=== PATIENT | male | born 1980 | race Caucasian/White ===

== ENCOUNTER 2019-03-11 19:23 | Emergency (ER) | payer SELFPAY ==
[2019-03-11 19:43] VITALS: BP 142/97
[2019-03-11] MEDS ORDERED: Tetan/Diph/Pertus SYR(Tdap)* 0.5 ML SYR(BOOSTRIX) use SYR IM ONE (19:47)
--- NOTE | 2019-03-11 20:25 | ED ---
Head Injury - HPI Summary HPI Summary: 38 yr old male with the complaint of hit his head. 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 No LOC. He has mild headache. No NV. NO focal deficits. He has a superficial laceration to the mid scalp but within the hair. Not crossing the hairline or onto the scalp. - History Of Current Complaint Chief Complaint: UCLaceration Stated Complaint: HEAD LACERATION Time Seen by Provider: 03/11/19 20:07 Pain Intensity: 7 - Allergies/Home Medications Allergies/Adverse Reactions: Allergies Allergy/AdvReac Type Severity Reaction Status Date / Time No Known Allergies Allergy Verified 03/11/19 19:43 Home Medications: Home Medications NK [No Home Medications Reported] 03/11/19 [History Confirmed 03/11/19] PMH/Surg Hx/FS Hx/Imm Hx Endocrine/Hematology History: Denies: Hx Anticoagulant Therapy, Hx Diabetes Cardiovascular History: Reports: Hx Hypertension Denies: Hx Congestive Heart Failure Respiratory History: Reports: Hx Sleep Apnea - current CPAP user GI History: Reports: Hx Gastroesophageal Reflux Disease History: Denies: Hx Dialysis, Hx Renal Disease Sensory History: Reports: Hx Contacts or Glasses - GLASSES Opthamlomology History: Reports: Hx Contacts or Glasses - GLASSES Neurological History: Reports: Hx Headaches - HX CALL's, Hx Migraine - 2-3x per week, will get them when not eating 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 Denies: Hx Clostridium Difficile, Hx Hepatitis, Hx Human Immunodeficiency Virus (HIV), Hx of Known/Suspected MRSA, Hx Shingles, Hx Known/Suspected VRE, Hx Known/Suspected VRSA, History Other Infectious Disease, Traveled Outside the [place] in Last 30 Days - Family History Known Family History: Positive: None - Social History Occupation: Employed Full-time Alcohol Use: None Hx Substance Use: No Substance Use Type: Reports: None Hx Tobacco Use: No Smoking Status (MU): Never Smoked Tobacco Review of Systems Constitutional: Negative Positive: Other - superficial anterior scalp laceration All Other Systems Reviewed And Are Negative: Yes Physical Exam Triage Information Reviewed: Yes Vital Signs On Initial Exam: Initial Vitals Temp Pulse Resp BP Pulse Ox 98.9 F 63 18 142/97 97 03/11/19 19:39 03/11/19 19:39 03/11/19 19:39 03/11/19 19:39 03/11/19 19:39 Vital Signs Reviewed: Yes Appearance: Positive: Well-Appearing, No Pain Distress Skin: Positive: Warm Head/Face: Positive: Other - superficial 2 cm scalp laceration anterior scalp within the hair. No active bleeding. Does not need repair. It is clean and it is approximated. Eyes: Positive: EOMI, RADHAMES ENT: Positive: Pharynx normal, TMs normal Neck: Positive: Nontender. Negative: Tenderness @ Respiratory/Lung Sounds: Positive: Clear to Auscultation, Breath Sounds Present Cardiovascular: Positive: RRR. Negative: Murmur Abdomen Description: Negative: Distended Musculoskeletal: Positive: Strength/ROM Intact Neurological: Positive: Sensory/Motor Intact, Alert, Oriented to Person Place, Time, CN Intact II-III, Normal Gait, Speech Normal Psychiatric: Positive: Normal - Ravinder Coma Scale Best Eye Response: 4 - Spontaneous Best Motor Response: 6 - Obeys Commands Best Verbal Response: 5 - Oriented Coma Scale Total: 15 Diagnostics - Vital Signs Vital Signs Temp Pulse Resp BP Pulse Ox 03/11/19 19:39 98.9 F 63 18 142/97 97 - Laboratory Lab Statement: Any lab studies that have been ordered have been reviewed, and results considered in the medical decision making process. Head Injury Course/Dx Course Of Treatment: 38 yr old with superficial scalp laceration. No concussion. His tetanus shot is updated. DC home. Return to work no restriction on Wed the 13 of March. - Diagnoses Provider Diagnoses: Scalp laceration, Hypertension Discharge - Sign-Out/Discharge Documenting (check all that apply): Patient Departure All imaging exams completed and their final reports reviewed: No Studies - Discharge Plan Condition: Good Disposition: HOME Patient Education Materials: Laceration (DC), Hypertension (ED) Forms: *Work Release Referrals: No Primary Care Phys,NOPCP [Primary Care Provider] - [facility] [Outside] - 3 Days - Billing Disposition and Condition Condition: GOOD Disposition: Home
== END 2019-03-11 20:32 | disposition home or self-care (01) ==
LOC: UCEAST 19:23
DX: S01.01XA Laceration without foreign body of scalp, initial encounter (principal); W22.8XXA Striking against or struck by other objects, initial encounter; Y93.89 Activity, other specified; Y92.89 Other specified places as the place of occurrence of the external cause; Y99.0 Civilian activity done for income or pay; I10 Essential (primary) hypertension
CPT/HCPCS: 90471; 90715; 99211; G0463

== ENCOUNTER 2019-08-05 16:29 | Emergency (ER) | payer OTHER ==
[2019-08-05 16:51] VITALS: BP 153/99
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
== END 2019-08-05 17:49 | disposition home health service (06) ==
LOC: UCEAST 16:29
DX: R07.9 Chest pain, unspecified (principal); R06.02 Shortness of breath; M54.89 Other dorsalgia; C76.0 Malignant neoplasm of head, face and neck; I10 Essential (primary) hypertension; Z79.899 Other long term (current) drug therapy; Z87.828 Personal history of other (healed) physical injury and trauma
CPT/HCPCS: 99212; G0463

== ENCOUNTER 2019-08-05 18:06 | Emergency (ER) | payer OTHER ==
[2019-08-05 19:49] LABS: ABS Eosinophils 0.2 10^3/ul (0-0.6); ABS Lymphocytes 2.6 10^3/ul (1.0-4.8); ABS Monocytes 0.5 10^3/ul (0-0.8); ABS Neutrophils 3.7 10^3/ul (1.5-7.7); Eosinophil % 2.9 %; Hematocrit 44 % (42-52); Lymphocyte % 36.4 %; Mean Corpuscular HGB Conc 37 g/dL (31-36); Mean Corpuscular Hemoglobin 34 pg (27-31); Mean Corpuscular Volume 92 fL (80-94); Nucleated Red Blood Cells % 0.1; Platelet Count 207 10^3/uL (150-450); Red Blood Count 4.78 10^6 /uL (4.18-5.48); Red Cell Distribution Width 17 % (10-15)
[2019-08-05 19:56] LABS: INR 0.94 (0.82-1.09)
[2019-08-05 20:00] LABS: ALT 37 U/L (7-52); Albumin 4.3 g/dL (3.2-5.2); Albumin/Globulin Ratio 1.4 (1-3); Alkaline Phosphatase 84 U/L (34-104); BUN/Creatinine Ratio 14.3 (8-20); Blood Urea Nitrogen 17 mg/dL (6-24); CO2 Carbon Dioxide 29 mmol/L (22-32); Calcium 9.3 mg/dL (8.6-10.3); Chloride 104 mmol/L (101-111); EGFR African American 81.9 (>60); EGFR Non-African American 67.7 (>60); Globulin 3.1 g/dL (2-4); Glucose 123 mg/dL (70-100); Sodium 138 mmol/L (135-145); Total Protein 7.4 g/dL (6.4-8.9)
[2019-08-05 20:23] LABS: Anion Gap 5 mmol/L (2-11)
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
[2019-08-05] MEDS ORDERED: Iohexol 350* (CONTRAST) 500 ML MDV IV ONE (21:43)
[2019-08-05 23:18] VITALS: BP 137/97
== END 2019-08-05 23:18 | disposition home or self-care (01) ==
LOC: ED 18:06
DX: R06.00 Dyspnea, unspecified (principal); I10 Essential (primary) hypertension; K21.9 Gastro-esophageal reflux disease without esophagitis
CPT/HCPCS: 36415; 71275; 80053; 84484; 85025; 85610; 93005; 99283; Q9967